=== PATIENT | female | born 2000 | race Caucasian/White ===

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

== ENCOUNTER → 2021-04-07 14:05 | Outpatient (CLI) | payer OTHER, SELFPAY | PROVIDERS: Visit Provider Family Medicine | DX: Z23 Encounter for immunization (principal) ==